=== PATIENT | male | born 1970 | race Caucasian/White ===

== ENCOUNTER 2020-07-24 06:42 | Day surgery (SDC) | payer OTHER ==
[~2020-07-24] VITALS: Ht 182.9 cm; Wt 90.7 kg
[~2020-07-24 06:42] MED LIST: ALLERGY NA50 MCG/ACT; LIPITOR10 M1 PO; LORATADINE10 M1 PO; LORTAB 5 OR; NO HOME MEDS; TIZANIDINE HCL2 MG PO; WELLBUTRIN XL300 MG PO; ZOFRAN ODT8 MG SL
[2020-07-24 09:15] VITALS: BP 122/72
== END 2020-07-24 09:25 | disposition home or self-care (01) | DRG 393 ==
LOC: ENDO 06:42 → ORM 08:00 → ENDO 08:00
PROVIDERS: ATTEND Surgery
PROC: 0DBP8ZX Excision of Rectum, Via Natural or Artificial Opening Endoscopic, Diagnostic (ICD-10-PCS; principal; 2020-07-24)
DX: K62.1 Rectal polyp (principal); K57.31 Diverticulosis of large intestine without perforation or abscess with bleeding; K64.8 Other hemorrhoids; Z20.822 Contact with and (suspected) exposure to COVID-19